=== PATIENT | female | born 1970 | race Caucasian/White ===

== ENCOUNTER 2017-08-21 17:31 | Emergency (ER) | payer OTHER ==
[~2017-08-21] VITALS: Ht 165.1 cm; Wt 77.1 kg
[~2017-08-21 17:31] MED LIST: AMLO5 PO; ASPI81CH; ASPI81CH PO; ASPI81EC PO; CLON.1 PO; CYCL10; CYCL10 PO; Colace100 MG PO; DIPH25 PO; DIPH50; HYDACE5 PO; IBUP600 PO; Inderal60 MG; LISI5; LISI5 PO; LORA10 PO; MELO7.5 PO; METPRE4DP PO; NORT25 PO; Nitrostat0.4 MG; Norco 5-325 Ta1 EACH PO; Norvasc2.5 MG; OMEP20ER PO; OXYACE5T; OXYACE5T PO; PHENERGAN25 MG RC; PROM25 PO; Percocet 5-3251 EACH PO; TRAM50 PO; Zofran Odt4 MG SL
[2017-08-21] MEDS ORDERED: Percocet 5-3251 EACH PO (18:13)
[2017-08-21] MEDS ORDERED: Keflex500 MG PO (18:13)
== END 2017-08-21 18:24 | disposition home or self-care (01) ==
LOC: ER 17:31
DX: L03.211 Cellulitis of face (principal); I10 Essential (primary) hypertension; K21.9 Gastro-esophageal reflux disease without esophagitis; Z88.2 Allergy status to sulfonamides; Z79.899 Other long term (current) drug therapy; Z79.82 Long term (current) use of aspirin
CPT/HCPCS: 99283

== ENCOUNTER 2018-03-05 03:47 | Observation (INO) | payer OTHER ==
[~2018-03-05] VITALS: Ht 165.1 cm; Wt 77.1 kg
[~2018-03-05 03:47] MED LIST changes: +Keflex500 MG PO
[2018-03-05 04:44] LABS: BASOPHILS ABSOLUTE AUTO 0.03 K/mm3 (0.00-0.23); BASOPHILS PERCENT AUTO 0 % (0-2); EOSINOPHILS ABSOLUTE AUTO 0.52 K/mm3 (0.00-0.68); EOSINOPHILS PERCENT AUTO 5 % (0-6); Hematocrit 37.2 % (33.0-51.0); Hemoglobin 12.7 g/dL (11.5-16.0); IMMATURE GRAN ABSOLUTE AUTO 0.03 K/mm3 (0.00-0.10); IMMATURE GRAN PERCENT AUTO 0 % (0-1); LYMPHOCYTES PERCENT AUTO 19 % (21-46); MONOCYTES PERCENT AUTO 7 % (4-13); Mean Corpuscular HGB 30.9 pg (26.0-34.0); Mean Corpuscular HGB Conc 34.1 g/dL (31.5-36.5); Mean Corpuscular Volume 91 fL (80-100); Mean Platelet Volume 9.7 fL (9.1-12.4); NEUTROPHILS ABSOLUTE AUTO 7.08 K/mm3 (1.96-9.15); NEUTROPHILS PERCENT AUTO 69 % (41-73); Platelet Count 254 K/mm3 (150-400); RDW Coefficient Variation 12.2 % (11.7-14.2); RDW Standard Deviation 39.8 fL (35.1-46.3); Red Blood Cell Count 4.11 M/mm3 (3.80-5.20); White Blood Cell Count 10.26 K/mm3 (4.00-11.30)
[2018-03-05 05:08] LABS: Alanine Aminotransfer (ALT/SGP 32 U/L (12-78); Albumin, Blood 3.5 g/dL (3.4-5.0); Albumin/Globulin Ratio 0.9 (0.8-1.8); Alk Phos 58 U/L (50-136); Anion Gap 8 mmol/L (6-16); Aspartate Aminotrans (AST/SGOT 24 U/L (12-37); Bilirubin, Total 0.3 mg/dL (0.1-1.0); Blood Urea Nitrogen 14 mg/dL (8-24); Bun/Creatinine Ratio 14.2 (12.0-20.0); CO2, Blood 25 mmol/L (21-32); Calcium, Blood 8.1 mg/dL (8.5-10.1); Chloride, Blood 106 mmol/L (98-108); Creatinine, Blood 0.99 mg/dL (0.40-1.00); Ethanol (Alcohol), Blood, Med <3 mg/dL; Glomerular Filtration Rate >60 (60-); Glucose, Blood 125 mg/dL (70-99); Potassium, Blood 3.7 mmol/L (3.5-5.5); Salicylate <1.7 mg/dL (2.8-20.0); Sodium, Blood 139 mmol/L (136-145); Total Protein, Blood 7.5 g/dL (6.4-8.2)
[2018-03-05 05:16] LABS: Acetaminophen, Random <2.0 ug/mL (10.0-30.0)
[2018-03-05 06:23] LABS: Source, Urine Clean Catch
[2018-03-05 06:26] LABS: Bilirubin, Urine Neg (Neg); Blood, Urine Neg (Neg); Glucose Qualitative, Urine Neg (Neg); Ketones, Urine Neg (Neg); Leukocyte Esterase, Urine Neg (Neg); Nitrite, Urine Neg (Neg); Protein, Urine Neg (Neg); Specific Gravity, Urine 1.005 (1.003-1.022); Urobilinogen, Urine NORM (Normal)
[2018-03-05 06:38] LABS: Appearance, Urine Clear (Clear); Color, Urine Yellow (P-Yellow)
[2018-03-05 06:39] LABS: U Amphetamine Screen Not Detected; U Barbituate Screen Not Detected; U Benzodiazapine Screen Not Detected; U Buprenorphine Screen Not Detected; U Cannabinoids Screen Not Detected; U Cocaine Screen Not Detected; U Methadone Screen Not Detected; U Methamphetamine Screen Not Detected; U Opiates Screen Not Detected; U Oxycodone Screen Not Detected; U Phencyclidine Screen Not Detected; U Propoxyphene Screen Not Detected
== END 2018-03-06 11:00 | disposition home or self-care (01) ==
LOC: ER 03:47 → EOR 03:48
PROVIDERS: Emergency Medicine
DX: R45.851 Suicidal ideations (principal); F32.9 Major depressive disorder, single episode, unspecified; I10 Essential (primary) hypertension; M47.898 Other spondylosis, sacral and sacrococcygeal region; K21.9 Gastro-esophageal reflux disease without esophagitis; Z88.2 Allergy status to sulfonamides; Z79.1 Long term (current) use of non-steroidal anti-inflammatories (NSAID); Z79.899 Other long term (current) drug therapy; Z91.5 Personal history of self-harm
CPT/HCPCS: 80053; 81003; 81025; 84443; 85025; 99285; G0378; G0480; Q3014

== ENCOUNTER 2018-07-14 09:13 | Day surgery (SDC) | payer OTHER ==
[~2018-07-14] VITALS: Ht 167.6 cm; Wt 76.9 kg
[~2018-07-14 09:13] MED LIST changes: +ACID REDUCER20 MG PO; +Aspir 8181 MG PO; +CLARITIN10 MG PO; +CLON.2 PO; +DIPH50 PO; +FLONASE ALLERG9.9 ML; +Fiber Therapy0.52 GM PO; +HYOS.125 SL; +Inderal60 MG PO; +Mirena1 EACH VAG; +Mobic15 MG PO; +Multivitamin W1 EAC5 PO; +Nitrostat0.4 MG SL; +Nortriptyline H25 MG PO; +PROBIOTIC1 EAC1 PO; +SUCR1 PO
== END 2018-07-14 11:25 | disposition home or self-care (01) ==
LOC: ORSCSDS 09:13
PROVIDERS: Internal Medicine Gastroenterology
PROC: 0D758ZZ Dilation of Esophagus, Via Natural or Artificial Opening Endoscopic (ICD-10-PCS; principal; 2018-07-14 10:30)
DX: R13.10 Dysphagia, unspecified (principal); K22.2 Esophageal obstruction; Z87.11 Personal history of peptic ulcer disease; K44.9 Diaphragmatic hernia without obstruction or gangrene; K21.9 Gastro-esophageal reflux disease without esophagitis; I10 Essential (primary) hypertension; Z79.82 Long term (current) use of aspirin; Z79.899 Other long term (current) drug therapy
CPT/HCPCS: C1726; J0330; J1980; J2405; J7120

== ENCOUNTER → 2018-11-19 | Outpatient (CLI) | payer OTHER ==
[2018-11-19 15:45] LABS: BASOPHILS ABSOLUTE AUTO 0.02 K/mm3 (0.00-0.23); BASOPHILS PERCENT AUTO 0 % (0-2); EOSINOPHILS ABSOLUTE AUTO 0.35 K/mm3 (0.00-0.68); EOSINOPHILS PERCENT AUTO 6 % (0-6); Hematocrit 41.3 % (33.0-51.0); Hemoglobin 13.5 g/dL (11.5-16.0); IMMATURE GRAN ABSOLUTE AUTO 0.01 K/mm3 (0.00-0.10); IMMATURE GRAN PERCENT AUTO 0 % (0-1); LYMPHOCYTES ABSOLUTE AUTO 1.63 K/mm3 (0.84-5.20); LYMPHOCYTES PERCENT AUTO 27 % (21-46); MONOCYTES ABSOLUTE AUTO 0.55 K/mm3 (0.16-1.47); MONOCYTES PERCENT AUTO 9 % (4-13); Mean Corpuscular HGB 30.3 pg (26.0-34.0); Mean Corpuscular HGB Conc 32.7 g/dL (31.5-36.5); Mean Corpuscular Volume 93 fL (80-100); Mean Platelet Volume 10.2 fL (9.1-12.4); NEUTROPHILS ABSOLUTE AUTO 3.49 K/mm3 (1.96-9.15); NEUTROPHILS PERCENT AUTO 58 % (41-73); Platelet Count 262 K/mm3 (150-400); RDW Coefficient Variation 12.5 % (11.7-14.2); RDW Standard Deviation 42.9 fL (35.1-46.3); Red Blood Cell Count 4.45 M/mm3 (3.80-5.20); White Blood Cell Count 6.05 K/mm3 (4.00-11.30)
[2018-11-19 15:48] LABS: Anion Gap 3 mmol/L (6-16); Blood Urea Nitrogen 11 mg/dL (8-24); Bun/Creatinine Ratio 11.4 (12.0-20.0); CO2, Blood 29 mmol/L (21-32); Calcium, Blood 8.9 mg/dL (8.5-10.1); Chloride, Blood 105 mmol/L (98-108); Creatinine, Blood 0.97 mg/dL (0.40-1.00); Glomerular Filtration Rate >60 (60-); Glucose, Blood 88 mg/dL (70-99); Potassium, Blood 3.9 mmol/L (3.5-5.5); Sodium, Blood 137 mmol/L (136-145)
== END | disposition home or self-care (01) ==
LOC: LAB SHORT 15:10 → LAB 15:10
PROVIDERS: Podiatrist Foot & Ankle Surgery
DX: Z01.812 Encounter for preprocedural laboratory examination (principal); M19.071 Primary osteoarthritis, right ankle and foot
CPT/HCPCS: 36415; 80048; 85025

== ENCOUNTER 2018-11-26 13:09 | Day surgery (SDC) | payer OTHER ==
[~2018-11-26] VITALS: Ht 167.6 cm; Wt 98.3 kg
== END 2018-11-26 17:17 | disposition home or self-care (01) ==
LOC: ORSCSDS 13:09
PROVIDERS: Podiatrist Foot & Ankle Surgery
PROC: 0QBN0ZZ Excision of Right Metatarsal, Open Approach (ICD-10-PCS; principal; 2018-11-26 14:30)
PROC: 0QBL0ZZ Excision of Right Tarsal, Open Approach (ICD-10-PCS; principal; 2018-11-26 14:30)
DX: M19.071 Primary osteoarthritis, right ankle and foot (principal); I10 Essential (primary) hypertension; Z79.899 Other long term (current) drug therapy
CPT/HCPCS: J0690; J1100; J2250; J2405; J2704; J3010

== ENCOUNTER 2019-06-13 11:19 | Day surgery (SDC) | payer OTHER | END 2019-06-13 14:03 | disposition home or self-care (01) | LOC: ORSCSDS 11:19 | PROVIDERS: Podiatrist Foot & Ankle Surgery | PROC: 0QBM0ZZ Excision of Left Tarsal, Open Approach (ICD-10-PCS; principal; 2019-06-13 12:30) | PROC: 0QBP0ZZ Excision of Left Metatarsal, Open Approach (ICD-10-PCS; principal; 2019-06-13 12:30) | DX: M19.072 Primary osteoarthritis, left ankle and foot (principal); I25.10 Atherosclerotic heart disease of native coronary artery without angina pectoris; I10 Essential (primary) hypertension; K21.9 Gastro-esophageal reflux disease without esophagitis; Z79.899 Other long term (current) drug therapy | CPT/HCPCS: J0171; J0690; J1100; J2405; J2704; J3010; J7120 ==

== ENCOUNTER → 2019-07-25 | Outpatient (CLI) | payer OTHER ==
[2019-07-27 13:07] LABS: HPV 16 Negative (Negative); HPV 18 Negative (Negative); HPV OTHER HR TYPES Negative (Negative)
== END | disposition home or self-care (01) ==
LOC: LAB SHORT 14:10 → LAB 14:10
PROVIDERS: Obstetrics & Gynecology
DX: Z01.419 Encounter for gynecological examination (general) (routine) without abnormal findings (principal)
CPT/HCPCS: 87624; G0123

== ENCOUNTER 2020-07-10 02:42 | Emergency (ER) | payer OTHER ==
[~2020-07-10] VITALS: Ht 165.1 cm; Wt 66.7 kg
[2020-07-10 03:46] LABS: BASOPHILS ABSOLUTE AUTO 0.05 K/mm3 (0.00-0.23); BASOPHILS PERCENT AUTO 1 % (0-2); EOSINOPHILS ABSOLUTE AUTO 0.63 K/mm3 (0.00-0.68); EOSINOPHILS PERCENT AUTO 7 % (0-6); Hematocrit 39.7 % (33.0-51.0); Hemoglobin 12.8 g/dL (11.5-16.0); IMMATURE GRAN ABSOLUTE AUTO 0.03 K/mm3 (0.00-0.10); IMMATURE GRAN PERCENT AUTO 0 % (0-1); LYMPHOCYTES ABSOLUTE AUTO 3.09 K/mm3 (0.84-5.20); LYMPHOCYTES PERCENT AUTO 33 % (21-46); MONOCYTES ABSOLUTE AUTO 0.71 K/mm3 (0.16-1.47); MONOCYTES PERCENT AUTO 8 % (4-13); Mean Corpuscular HGB 30.1 pg (26.0-34.0); Mean Corpuscular HGB Conc 32.2 g/dL (31.5-36.5); Mean Corpuscular Volume 93 fL (80-100); Mean Platelet Volume 10.4 fL (9.1-12.4); NEUTROPHILS ABSOLUTE AUTO 4.74 K/mm3 (1.96-9.15); NEUTROPHILS PERCENT AUTO 51 % (41-73); Platelet Count 285 K/mm3 (150-400); RDW Coefficient Variation 12.7 % (11.7-14.2); RDW Standard Deviation 43.7 fL (35.1-46.3); Red Blood Cell Count 4.25 M/mm3 (3.80-5.20); White Blood Cell Count 9.25 K/mm3 (4.00-11.30)
[2020-07-10 03:59] LABS: Alanine Aminotransfer (ALT/SGP 27 U/L (12-78); Albumin, Blood 3.5 g/dL (3.4-5.0); Albumin/Globulin Ratio 0.8 (0.8-1.8); Alk Phos 78 U/L (50-136); Anion Gap 6 mmol/L (6-16); Aspartate Aminotrans (AST/SGOT 18 U/L (12-37); Bilirubin, Total 0.3 mg/dL (0.1-1.0); Blood Urea Nitrogen 12 mg/dL (8-24); Bun/Creatinine Ratio 13.4 (12.0-20.0); CO2, Blood 26 mmol/L (21-32); Calcium, Blood 8.7 mg/dL (8.5-10.1); Chloride, Blood 109 mmol/L (98-108); Creatinine, Blood 0.89 mg/dL (0.40-1.00); Globulin, Blood 4.2 g/dL (2.2-4.0); Glomerular Filtration Rate >60 (60-); Glucose, Blood 94 mg/dL (70-99); Potassium, Blood 3.6 mmol/L (3.5-5.5); Sodium, Blood 141 mmol/L (136-145); Total Protein, Blood 7.7 g/dL (6.4-8.2); Troponin I <0.015 ng/mL (0.000-0.040)
== END 2020-07-10 04:48 | disposition home or self-care (01) ==
LOC: ER 02:42
PROVIDERS: Emergency Medicine
DX: R07.9 Chest pain, unspecified (principal); I10 Essential (primary) hypertension; K21.9 Gastro-esophageal reflux disease without esophagitis; Z79.899 Other long term (current) drug therapy; Z88.2 Allergy status to sulfonamides; Z79.82 Long term (current) use of aspirin
CPT/HCPCS: 36415; 71046; 80053; 84484; 85025; 93005; 93010; 99285-25

== ENCOUNTER 2020-11-01 23:03 | Emergency (ER) | payer OTHER ==
[~2020-11-01] VITALS: Ht 165.1 cm; Wt 66.7 kg
[2020-11-02] MEDS ORDERED: Cyclobenzaprine5 MG PO (02:52)
== END 2020-11-02 03:04 | disposition home or self-care (01) ==
LOC: ER 23:03
DX: M54.5 Low back pain (principal); G89.29 Other chronic pain; Z88.2 Allergy status to sulfonamides; Z79.899 Other long term (current) drug therapy; I10 Essential (primary) hypertension; K21.9 Gastro-esophageal reflux disease without esophagitis
CPT/HCPCS: 96372; 99283; A9270; J1885

== ENCOUNTER → 2021-05-14 | Outpatient (CLI) | payer OTHER ==
[~2021-05-14] MED LIST changes: +Cyclobenzaprine5 MG PO
[2021-05-14 15:59] LABS: Source, Urine Clean Catch
[2021-05-14 17:41] LABS: Appearance, Urine Cloudy (Clear); Bilirubin, Urine Neg (Neg); Blood, Urine 3+ (Neg); Color, Urine Yellow (P-Yellow); Glucose Qualitative, Urine Neg (Neg); Ketones, Urine Neg (Neg); Leukocyte Esterase, Urine 3+ (Neg); Nitrite, Urine Neg (Neg); Protein, Urine 2+ (Neg); Urobilinogen, Urine NORM (Normal)
[2021-05-14 18:35] LABS: Squamous Epithelial Cells Mod /hpf (Few)
[2021-05-14 18:37] LABS: Bacteria Mod /hpf; White Blood Cells, Urine 25-50 /hpf (0-5)
== END | disposition home or self-care (01) ==
LOC: LAB SHORT 15:53 → LAB 15:53
PROVIDERS: Obstetrics & Gynecology
DX: R30.9 Painful micturition, unspecified (principal)
CPT/HCPCS: 81001; 87086

== ENCOUNTER → 2021-07-24 | Outpatient (CLI) | payer OTHER ==
[2021-07-24 15:18] LABS: Source, Urine Clean Catch
[2021-07-24 17:34] LABS: Bilirubin, Urine Neg (Neg); Blood, Urine 4+ (Neg); Glucose Qualitative, Urine Neg (Neg); Ketones, Urine Neg (Neg); Leukocyte Esterase, Urine 3+ (Neg); Nitrite, Urine Neg (Neg); Protein, Urine 2+ (Neg); Specific Gravity, Urine 1.015 (1.003-1.022); Urobilinogen, Urine NORM (Normal)
[2021-07-24 17:42] LABS: Appearance, Urine Hazy (Clear); Color, Urine Pale Yellow (P-Yellow)
[2021-07-24 17:43] LABS: Amorphous Light (0-Heavy); Bacteria Mod /hpf; Mucus Light (0-Heavy); Squamous Epithelial Cells Many /hpf (Few)
== END | disposition home or self-care (01) ==
LOC: LAB SHORT 15:04
PROVIDERS: Obstetrics & Gynecology
DX: R82.90 Unspecified abnormal findings in urine (principal)
CPT/HCPCS: 81001

== ENCOUNTER → 2021-08-28 | Outpatient (CLI) | payer OTHER ==
[2021-08-29 15:12] LABS: HPV 16 Negative (Negative); HPV 18 Negative (Negative); HPV OTHER HR TYPES Positive (Negative)
== END | disposition home or self-care (01) ==
LOC: LAB SHORT 16:53 → LAB 16:53
PROVIDERS: Obstetrics & Gynecology
DX: Z01.419 Encounter for gynecological examination (general) (routine) without abnormal findings (principal)
CPT/HCPCS: 87624; 87625; G0123

== ENCOUNTER 2021-09-18 02:45 | Emergency (ER) | payer OTHER ==
[~2021-09-18] VITALS: Ht 165.1 cm; Wt 69.4 kg
[2021-09-18] MEDS ORDERED: PROMETRIUM PO (03:00)
[2021-09-18] MEDS ORDERED: YUVAFEM10 MCG VG (03:00)
[2021-09-18] MEDS ORDERED: ESTROGEL (03:00)
[2021-09-18] MEDS ORDERED: IBUP600 PO (05:22)
[2021-09-18] MEDS ORDERED: LIDO700A20 TOP (05:22)
[2021-09-18] MEDS ORDERED: Norco 5-325 Ta1 EACH PO (05:22)
== END 2021-09-18 05:31 | disposition home or self-care (01) ==
LOC: ER 02:45
DX: M54.50 Low back pain, unspecified (principal); I10 Essential (primary) hypertension; K21.9 Gastro-esophageal reflux disease without esophagitis; Z88.2 Allergy status to sulfonamides; Z79.899 Other long term (current) drug therapy
CPT/HCPCS: 72100; 96374; 99283-25; A9270; J1885

== ENCOUNTER → 2021-09-25 | Outpatient (CLI) | payer OTHER ==
[~2021-09-25] MED LIST changes: +Amlodipine Bes2.5 MG PO; +BENZ100A PO; +CATAPRES0.2 M1 PO; +ESTROGEL; +Isosorbide Mono30 MG PO; +LIDO700A20 TOP; +PRAV20 PO; +PROMETRIUM PO; +PSEU120ER PO; +YUVAFEM10 MCG VG
== END | disposition home or self-care (01) ==
LOC: PLD 07:14 → LAB SHORT 07:14
DX: R87.619 Unspecified abnormal cytological findings in specimens from cervix uteri (principal)
CPT/HCPCS: 88305

== ENCOUNTER 2022-01-19 00:19 | Emergency (ER) | payer OTHER ==
[~2022-01-19] VITALS: Ht 165.1 cm; Wt 68.0 kg
[~2022-01-19 00:19] MED LIST changes: -Amlodipine Bes2.5 MG PO; -BENZ100A PO; -CATAPRES0.2 M1 PO; -Isosorbide Mono30 MG PO; -PRAV20 PO; -PSEU120ER PO
== END 2022-01-19 04:00 | disposition home or self-care (01) ==
LOC: ER 00:19
DX: S80.12XA Contusion of left lower leg, initial encounter (principal); W22.8XXA Striking against or struck by other objects, initial encounter; I10 Essential (primary) hypertension
CPT/HCPCS: 73590

== ENCOUNTER 2022-01-26 23:18 | Emergency (ER) | payer OTHER ==
[~2022-01-26] VITALS: Ht 165.1 cm; Wt 68.0 kg
[~2022-01-26 23:18] MED LIST changes: +Amlodipine Bes2.5 MG PO; +Isosorbide Mono30 MG PO; +PRAV20 PO
[2022-01-27] MEDS ORDERED: BENZ100A PO (03:00)
[2022-01-27] MEDS ORDERED: PSEU120ER PO (03:00)
== END 2022-01-27 03:15 | disposition home or self-care (01) ==
LOC: ER 23:18
DX: J40 Bronchitis, not specified as acute or chronic (principal); I10 Essential (primary) hypertension; K21.9 Gastro-esophageal reflux disease without esophagitis; Z79.899 Other long term (current) drug therapy; Z79.82 Long term (current) use of aspirin; Z91.09 Other allergy status, other than to drugs and biological substances
CPT/HCPCS: 71046; 99283-25

== ENCOUNTER 2022-02-04 11:01 | Day surgery (SDC) | payer OTHER ==
[~2022-02-04] VITALS: Ht 165.1 cm; Wt 68.7 kg
[~2022-02-04 11:01] MED LIST changes: +BENZ100A PO; +PSEU120ER PO
--- NOTE | 2022-02-04 16:09 | NUR ---
02/04/22 1608 ASHLEY JOHNS LATE ENTRY: PREMED- JUST PRIOR TO PROCEDURE WITH ZOFRAN 4MG PER DR. ROCA. TIME GIVEN WAS 1139. HILLARY,RN
== END 2022-02-04 12:40 | disposition home or self-care (01) ==
LOC: ORSCSDS 11:01
PROVIDERS: Student in an Organized Health Care Education/Training Program
PROC: 0DB58ZX Excision of Esophagus, Via Natural or Artificial Opening Endoscopic, Diagnostic (ICD-10-PCS; principal; 2022-02-04 12:15)
PROC: 0DB48ZX Excision of Esophagogastric Junction, Via Natural or Artificial Opening Endoscopic, Diagnostic (ICD-10-PCS; principal; 2022-02-04 12:15)
PROC: 0D758ZZ Dilation of Esophagus, Via Natural or Artificial Opening Endoscopic (ICD-10-PCS; principal; 2022-02-04 12:15)
DX: R13.10 Dysphagia, unspecified (principal); K21.00 Gastro-esophageal reflux disease with esophagitis, without bleeding; K22.2 Esophageal obstruction; K44.9 Diaphragmatic hernia without obstruction or gangrene; I10 Essential (primary) hypertension; Z79.899 Other long term (current) drug therapy
CPT/HCPCS: 88305; 88312; C1726; J2405; J2704; J7120

== ENCOUNTER 2022-03-13 17:35 | Emergency (ER) | payer OTHER ==
[~2022-03-13] VITALS: Ht 165.1 cm; Wt 67.1 kg
[2022-03-13 18:18] LABS: BASOPHILS ABSOLUTE AUTO 0.03 K/mm3 (0.00-0.23); BASOPHILS PERCENT AUTO 0 % (0-2); EOSINOPHILS ABSOLUTE AUTO 0.21 K/mm3 (0.00-0.68); EOSINOPHILS PERCENT AUTO 2 % (0-6); Hematocrit 42.2 % (33.0-51.0); Hemoglobin 14.2 g/dL (11.5-16.0); IMMATURE GRAN ABSOLUTE AUTO 0.03 K/mm3 (0.00-0.10); IMMATURE GRAN PERCENT AUTO 0 % (0-1); LYMPHOCYTES ABSOLUTE AUTO 2.28 K/mm3 (0.84-5.20); LYMPHOCYTES PERCENT AUTO 26 % (21-46); MONOCYTES ABSOLUTE AUTO 0.58 K/mm3 (0.16-1.47); MONOCYTES PERCENT AUTO 7 % (4-13); Mean Corpuscular HGB 29.8 pg (26.0-34.0); Mean Corpuscular HGB Conc 33.6 g/dL (31.5-36.5); Mean Corpuscular Volume 89 fL (80-100); Mean Platelet Volume 9.7 fL (9.1-12.4); NEUTROPHILS ABSOLUTE AUTO 5.52 K/mm3 (1.96-9.15); NEUTROPHILS PERCENT AUTO 64 % (41-73); Platelet Count 317 K/mm3 (150-400); RDW Coefficient Variation 12.2 % (11.7-14.2); RDW Standard Deviation 39.8 fL (35.1-46.3); Red Blood Cell Count 4.76 M/mm3 (3.80-5.20); White Blood Cell Count 8.65 K/mm3 (4.00-11.30)
[2022-03-13 18:39] LABS: Albumin, Blood 3.9 g/dL (3.4-5.0); Albumin/Globulin Ratio 0.9 (0.8-1.8); Bilirubin, Total 0.5 mg/dL (0.1-1.0); Bun/Creatinine Ratio 11.6 (12.0-20.0); Calcium, Blood 9.3 mg/dL (8.5-10.1); Creatinine, Blood 0.95 mg/dL (0.40-1.00); Globulin, Blood 4.4 g/dL (2.2-4.0); Potassium, Blood 3.9 mmol/L (3.5-5.5); Total Protein, Blood 8.3 g/dL (6.4-8.2)
[2022-03-14] MEDS ORDERED: Inderal60 MG PO (00:51)
[2022-03-14] MEDS ORDERED: CATAPRES0.2 M1 PO (00:51)
[2022-03-14] MEDS ORDERED: LISI5 PO (00:51)
== END 2022-03-14 01:03 | disposition home or self-care (01) ==
LOC: ER 17:35
PROVIDERS: Student in an Organized Health Care Education/Training Program
DX: R07.89 Other chest pain (principal); I10 Essential (primary) hypertension; F41.9 Anxiety disorder, unspecified; Z87.19 Personal history of other diseases of the digestive system; Z79.899 Other long term (current) drug therapy; Z79.82 Long term (current) use of aspirin; Z88.2 Allergy status to sulfonamides
CPT/HCPCS: 36415; 71045; 71260; 80053; 83690; 84484; 85025; 93005; 93010; 96374; 99284-25; A9270; J1885; Q9967

== ENCOUNTER 2022-07-25 06:10 | Day surgery (SDC) | payer OTHER ==
[~2022-07-25] VITALS: Ht 165.1 cm; Wt 70.1 kg
[~2022-07-25 06:10] MED LIST changes: +CATAPRES0.2 M1 PO; +ESTROGEL TOP; +PROG100 PO; +YUVAFEM10 MCG VAG
--- NOTE | 2022-07-25 06:53 | NUR ---
History, Chart, Medications and Allergies reviewed before start of procedure. Patient confirms NPO status and agrees with scheduled surgery. Pre-Op teaching done. Pt verbalizes understanding. PT BELONGINGS PLACED UNDERNEATH GURNEY FOR SAFEKEEPING.
--- NOTE | 2022-07-25 07:23 | NUR ---
PT NOSE RING AND EAR TRAGUS PIERCING RING LEFT IN PLACE PER PT. JEWELRY WAIVER SIGNED.
--- NOTE | 2022-07-25 17:35 | NUR ---
REPORTS UPPER ABD AND SUBSTERNAL PAIN/PRESSURE LEVEL 5-7/10 WHICH SHE STATES IS ACCEPTABLE LEVEL TO HER. UP TO VOID , LEGS TREMULOUS PATIENT DENIES FEELING DIZZY OR LIGHTHEADED. CINDY SIPS OF CLEAR LIQUIDS WITHOUT NAUSEA
--- NOTE | 2022-07-26 08:44 | NUR ---
SUMMARY PT REPORTS ADEQUATE PAIN CONTROL WITH IV DILAUDID.PT RECEIVED PO PAIN MEDS PER DAY SHIFT AND THIS SHIFT REQUIRED ZOFRAN IV.DAY RN WILL MONITOR PO INTAKE AND POSSIBLY ATEMPT PO MEDS AGAIN.PT AMBULATORY WITH SBA,AND VOIDING.
[2022-07-26] MEDS ORDERED: Percocet 5-3251 EACH PO (11:56)
[2022-07-26] MEDS ORDERED: ONDA4ODT MM (11:57)
--- NOTE | 2022-07-26 14:11 | NUR ---
DISCHARGED DC'D IV, CATHETER INTACT. REVIEWED DC INSTRUCTIONS W/PT; VERBALIZED UNDERSTANDING. PT LEFT UNIT IN WC, ACCOMPANIED BY SO, W/POSSESSIONS AND DC PAPRWORK IN HAND.
== END 2022-07-26 14:05 | disposition home or self-care (01) ==
LOC: ORSCMMR 06:10 → SURS 10:57 → ORSCMMR 13:30
PROVIDERS: Surgery
PROC: 0DV44ZZ Restriction of Esophagogastric Junction, Percutaneous Endoscopic Approach (ICD-10-PCS; principal; 2022-07-25 07:30)
PROC: 8E0W4CZ Robotic Assisted Procedure of Trunk Region, Percutaneous Endoscopic Approach (ICD-10-PCS; principal; 2022-07-25 07:30)
DX: K44.9 Diaphragmatic hernia without obstruction or gangrene (principal); K21.00 Gastro-esophageal reflux disease with esophagitis, without bleeding; I10 Essential (primary) hypertension; K21.9 Gastro-esophageal reflux disease without esophagitis; Z79.899 Other long term (current) drug therapy
CPT/HCPCS: 43281; S2900; A9270; J1100; J1170; J1650; J1885; J2250; J2370; J2405; J2704; J2795; J3010; J7120

== ENCOUNTER → 2023-10-20 | Outpatient (CLI) | payer OTHER ==
[~2023-10-20] MED LIST changes: +ONDA4ODT MM
[2023-10-27 19:06] LABS: HPV HIGH RISK BY TMA Not Detected; HPV SOURCE Cervical/Vag
== END | disposition home or self-care (01) ==
LOC: LAB SHORT 16:57 → LAB 16:57
PROVIDERS: Obstetrics & Gynecology
DX: Z01.419 Encounter for gynecological examination (general) (routine) without abnormal findings (principal)
CPT/HCPCS: 87624; G0123

== ENCOUNTER 2024-10-24 00:11 | Emergency (ER) | payer OTHER ==
[~2024-10-24] VITALS: Ht 167.6 cm; Wt 56.7 kg
[2024-10-24] MEDS ORDERED: Ibuprofen 600 MG Tab PO ONE (00:30)
[2024-10-24] MEDS ORDERED: IBU600 MG PO (01:32)
[2024-10-24 01:44] VITALS: BP 112/77
== END 2024-10-24 01:44 | disposition home or self-care (01) ==
LOC: ER 00:11
DX: S09.90XA Unspecified injury of head, initial encounter (principal); S50.02XA Contusion of left elbow, initial encounter; K21.9 Gastro-esophageal reflux disease without esophagitis; I10 Essential (primary) hypertension; W01.0XXA Fall on same level from slipping, tripping and stumbling without subsequent striking against object, initial encounter; Z79.82 Long term (current) use of aspirin; Z79.899 Other long term (current) drug therapy; Z88.2 Allergy status to sulfonamides
CPT/HCPCS: 70450; 72125; 73070; 99284-25; A9270